=== PATIENT | female | born 1995 | race American Indian/Alaskan Native ===

== ENCOUNTER 2020-07-31 14:46 | Emergency (ER) | payer SELFPAY ==
[2020-07-31 15:25] VITALS: BP 123/76
--- NOTE | 2020-07-31 15:46 | Emergency Department Report ---
ED Headache HPI - General Chief Complaint: Headache Stated Complaint: HEADACHES/EYE PAIN Time Seen by Provider: 07/31/20 15:40 - History of Present Illness Initial Comments: 24 y/o female comes in the ER for headache on the left side times 1 week. Has some tearing of left eye and pain on the left faith. Has a hx/o of migraines and has been taking ibuprofen with no help. Has some photo sensitivity. Denies N/V or change in vision. Timing/Duration: 1 week Quality: moderate Head Injury Location: temporal (left) Recent Head Trauma: occasional headaches Modifying Factors: improves with: exposure to light Associated Symptoms: other (left eye drainage). denies: facial pain, fever/chills, nausea/vomiting Allergies/Adverse Reactions: Allergies No Known Allergies Allergy (Unverified 07/31/20 15:48) Home Medications: Ambulatory Orders SUMAtriptan SUCCINATE [Imitrex] 25 mg PO QDAY PRN #12 tablet 07/31/20 ED Review of Systems ROS: Stated complaint: HEADACHES/EYE PAIN Other details as noted in HPI Comment: All other systems reviewed and negative ED Past Medical Hx - Past Medical History Previous Medical History?: Yes Hx Headaches / Migraines: Yes Hx Asthma: Yes - Surgical History Past Surgical History?: No - Social History Smoking Status: Never Smoker Substance Use Type: None - Medications Home Medications: Home Medications Medication Instructions Recorded Confirmed Last Taken Type SUMAtriptan SUCCINATE [Imitrex] 25 mg PO QDAY PRN #12 tablet 07/31/20 Unknown Rx ED Physical Exam - General Limitations: No Limitations General appearance: alert, in no apparent distress - Head Head exam: Present: atraumatic, normocephalic - Eye Eye exam: Present: normal appearance - ENT ENT exam: Present: mucous membranes moist - Neck Neck exam: Present: tenderness (left side), full ROM - Neurological Exam Neurological exam: Present: alert, oriented X3, normal gait - Expanded Neurological Exam Expanded Cranial nerves: EOM's Intact: Normal, Gag Reflex: Normal, Tongue Deviation: Normal, Nystagmus: Normal, Facial Sensation: Normal, Facial Palsy with Forehead Movement: Normal, Facial Palsy without Forehead Movement: Normal Cerebellar function: Finger to Nose: Normal, Heel to [place]: Normal, Romberg: Normal Upper motor neuron: Yandel Neglect: Normal, Pronator Drift: Normal, Sensory Ext inction: Normal Sensory exam: Upper Extremity Light Touch: Normal, Upper Extremity Pin Prick: Normal, Upper Extremity Temperature: Normal, UE 2 Point Discrimination: Normal, Lower Extremity Light Touch: Normal, Lower Extremity Pin Prick: Normal, Lower Extremity Temperature: Normal, LE 2 Point Discrimination: Normal Motor strength exam: RUE: 5, LUE: 5, RLE: 5, LLE: 5 Best Eye Response ([place]): (4) open spontaneously Best Motor Response ([place]): (6) obeys commands Best Verbal Response ([place]): (5) oriented [place] Total: 15 - Psychiatric Psychiatric exam: Present: normal affect, normal mood - Skin Skin exam: Present: warm, dry, intact, normal color. Absent: rash ED Course Vital Signs 07/31/20 15:20 Temperature 99.2 F Pulse Rate 58 L Respiratory 20 Rate Blood Pressure 123/76 O2 Sat by Pulse 100 Oximetry ED Medical Decision Making - Medical Decision Making 24 y/o female comes in the ER for headache on the left side times 1 week. Has some tearing of left eye and pain on the left faith. Has a hx/o of migraines and has been taking ibuprofen with no help. Has some photo sensitivity. Denies N/V or change in vision. Will try oxygen therapy. Rx for imatrax Critical care attestation.: If time is entered above; I have spent that time in minutes in the direct care of this critically ill patient, excluding procedure time. ED Disposition Clinical Impression: Cluster headache syndrome, not intractable Disposition: DC-01 TO HOME OR SELFCARE Is pt being admited?: No Does the pt Need Aspirin: No Condition: Stable Instructions: Cluster Headache (ED) Additional Instructions: Take meds as prescribed and follow up with a specialist. Prescriptions: SUMAtriptan SUCCINATE [Imitrex] 25 mg PO QDAY PRN #12 tablet PRN Reason: Headache Referrals: JADA RAMON MD [Referring] - 3-5 Days
[2020-07-31] MEDS ORDERED: SUMAtriptan SUCCINATE 25 MG TAB PO ONE (15:50)
[2020-07-31] MEDS ORDERED: SUMAtriptan SUCCINATE 6 MG/0.5 ML INJ SUB-Q ONE ×2 (15:55→15:59)
== END 2020-07-31 17:26 | disposition home or self-care (01) ==
LOC: ED 14:46
DX: G44.009 Cluster headache syndrome, unspecified, not intractable (principal); J45.909 Unspecified asthma, uncomplicated; Z79.899 Other long term (current) drug therapy
CPT/HCPCS: 96372; 99282; J3030

== ENCOUNTER 2020-10-26 16:39 | Emergency (ER) | payer OTHER ==
[2020-10-26 18:00] VITALS: BP 112/81
== END 2020-10-27 01:34 ==
LOC: ED 16:39
DX: J00 Acute nasopharyngitis [common cold] (principal); Z53.21 Procedure and treatment not carried out due to patient leaving prior to being seen by health care provider

== ENCOUNTER 2021-10-24 11:48 | Emergency (ER) | payer SELFPAY ==
--- NOTE | 2021-10-24 13:47 | Emergency Department Report ---
- General Chief Complaint: Weakness Stated Complaint: BODY ACHES/HEADACHE Time Seen by Provider: 10/24/21 13:35 Source: patient Mode of arrival: Ambulatory Limitations: No Limitations - History of Present Illness Initial Comments: Patient is a 25-year-old female presents emergency with complaints of generalized body aches that began last night. She has associated headache, sore throat, chills, fever, cough. She reports that last night her temperature was 101. She has not taken any medication today or any fever reducers today. She denies any vomiting, diarrhea, ear pain, shortness of breath, chest pain. She denies any known sick contacts or recent travel. She has not been vaccinated for COVID-19. No past medical history. No allergies to medications. - Related Data Previous Rx's Medication Instructions Recorded Last Taken Type SUMAtriptan SUCCINATE [Imitrex] 25 mg PO QDAY PRN #12 tablet 07/31/20 Unknown Rx Benzonatate [Tessalon Perles] 100 mg PO Q8HR PRN #12 capsule 10/24/21 Unknown Rx Fluticasone [Flonase] 1 spray NS QDAY #1 bottle 10/24/21 Unknown Rx Naproxen 375 mg PO BID PRN #20 tablet 10/24/21 Unknown Rx guaiFENesin ER [Mucinex ER] 600 mg PO Q12H #14 tablet.er 10/24/21 Unknown Rx Allergies Allergy/AdvReac Type Severity Reaction Status Date / Time No Known Allergies Allergy Unverified 07/31/20 15:48 ED Review of Systems ROS: Stated complaint: BODY ACHES/HEADACHE Other details as noted in HPI Comment: All other systems reviewed and negative ED Past Medical Hx - Past Medical History Previous Medical History?: Yes Hx Headaches / Migraines: Yes Hx Asthma: Yes - Surgical History Past Surgical History?: No - Social History Smoking Status: Never Smoker Substance Use Type: None - Medications Home Medications: Home Medications Medication Instructions Recorded Confirmed Last Taken Type SUMAtriptan SUCCINATE [Imitrex] 25 mg PO QDAY PRN #12 tablet 07/31/20 Unknown Rx Benzonatate [Tessalon Perles] 100 mg PO Q8HR PRN #12 capsule 10/24/21 Unknown Rx Fluticasone [Flonase] 1 spray NS QDAY #1 bottle 10/24/21 Unknown Rx Naproxen 375 mg PO BID PRN #20 tablet 12/26/21 Unknown Rx guaiFENesin ER [Mucinex ER] 600 mg PO Q12H #14 tablet.er 10/24/21 Unknown Rx ED Physical Exam - General Limitations: No Limitations General appearance: alert, in no apparent distress - Head Head exam: Present: atraumatic, normocephalic - Eye Eye exam: Present: normal appearance - ENT ENT exam: Present: normal orophraynx, mucous membranes moist, TM's normal bilaterally, normal external ear exam - Respiratory Respiratory exam: Present: normal lung sounds bilaterally. Absent: respiratory distress, wheezes, rales, rhonchi, stridor, chest wall tenderness, accessory muscle use, decreased breath sounds, prolonged expiratory - Cardiovascular Cardiovascular Exam: Present: regular rate, normal rhythm, normal heart sounds. Absent: systolic murmur, diastolic murmur, rubs, gallop - Neurological Exam Neurological exam: Present: alert, oriented X3 - Psychiatric Psychiatric exam: Present: normal affect, normal mood - Skin Skin exam: Present: warm, dry, intact ED Course Vital Signs 10/24/21 10/24/21 12:39 14:48 Temperature 99.1 F 98.4 F Pulse Rate 80 86 Respiratory 16 17 Rate Blood Pressure 98/69 113/68 [Left] O2 Sat by Pulse 94 97 Oximetry ED Medical Decision Making - Lab Data Vital Signs 10/24/21 10/24/21 12:39 14:48 Temperature 99.1 F 98.4 F Pulse Rate 80 86 Respiratory 16 17 Rate Blood Pressure 98/69 113/68 [Left] O2 Sat by Pulse 94 97 Oximetry - Medical Decision Making Patient is a 25-year-old female presents emergency with complaints of generalized body aches that began last night. She has associated headache, sore throat, chills, fever, cough. She reports that last night her temperature was 101. She has not taken any medication today or any fever reducers today. She denies any vomiting, diarrhea, ear pain, shortness of breath, chest pain. She denies any known sick contacts or recent travel. She has not been vaccinated for COVID-19. No past medical history. No allergies to medications. Vitals are stable. Normal oropharynx, normal TMs and canals, breath sounds are clear bilaterally, no wheezing, no rales, no rhonchi. Symptoms appear consistent with URI. Patient is presenting with the symptoms during COVID-19 pandemic, discussed the possibility of COVID-19 with patient, discussed return precautions, discussed outpatient testing, discussed self quarantine. Discussed supportive care and symptomatic treatment with patient and the importance of oral hydration. Advised patient please take medication as prescribed. Increase your fluid intake. Follow-up with your primary care doctor for reexamination. Return to emergency room for any new or worsening symptoms. Recommend outpatient COVID-19 testing and if positive will need to self quarantine for 10 days from onset of symptoms. Recommend for you to get your outpatient COVID-19 test 48 hours after your symptoms started. Critical care attestation.: If time is entered above; I have spent that time in minutes in the direct care of this critically ill patient, excluding procedure time. ED Disposition Clinical Impression: URI (upper respiratory infection) Qualifiers: URI type: unspecified URI Qualified Code(s): J06.9 - Acute upper respiratory infection, unspecified Disposition: 01 HOME / SELF CARE / HOMELESS Is pt being admited?: No Does the pt Need Aspirin: No Condition: Stable Instructions: Viral Respiratory Infection Additional Instructions: please take medication as prescribed. Increase your fluid intake. Follow-up with your primary care doctor for reexamination. Return to emergency room for any new or worsening symptoms. Recommend outpatient COVID-19 testing and if positive will need to self quarantine for 10 days from onset of symptoms. Recommend for you to get your outpatient COVID-19 test 48 hours after your symptoms started. Prescriptions: Fluticasone [Flonase] 1 spray NS QDAY #1 bottle guaiFENesin ER [Mucinex ER] 600 mg PO Q12H #14 tablet.er Naproxen 375 mg PO BID PRN #20 tablet PRN Reason: pain Benzonatate [Tessalon Perles] 100 mg PO Q8HR PRN #12 capsule PRN Reason: cough Referrals: ALEAH MILTON MD [Staff Physician] - 3-5 Days [facility] [Provider Group] - 3-5 Days Forms: Work/School Release Form(ED) Time of Disposition: 13:45 Print Language: [place]OV[place]
[2021-10-24 14:48] VITALS: BP 113/68
== END 2021-10-24 15:11 | disposition home or self-care (01) ==
LOC: ED 11:48
DX: J06.9 Acute upper respiratory infection, unspecified (principal)
CPT/HCPCS: 99282